=== PATIENT | male | born 1960 | race African-American/Black ===

== ENCOUNTER → 2019-05-20 | Outpatient (CLI) | payer OTHER ==
[~2019-05-20] MED LIST: ASPI81CH33 PO; BABY81CH; D3 H10002 PO; FELO10TA PO; FELO5TAB4; GASTROGRAFIN SOLUTION 30ML (Q9963) As Ordered ONE; ISOVUE-370 76% 100ML VIAL (Q9967) As Ordered ONE; LEVI20TA; LISI10TA4 PO; MULT1TAB7 PO; OXYC-517 PO; RYZOLT; ULTRTA
--- NOTE | 2019-05-21 09:58 | REP ---
Clinical: History of hepatocellular carcinoma. Technique: Axial noncontrast images from the thoracic inlet to the upper abdomen with coronal and sagittal re-formations. Comparison: None available. Findings: Lung apple demonstrate minimal posterior basilar dependent changes. No acute consolidation, significant nodule, or mass lesion appreciated. No effusion. No pneumothorax. Tracheobronchial tree is patent. No significant adenopathy. A few calcified mediastinal lymph nodes suggest prior granulomatous disease. Atherosclerotic changes to the thoracic aorta and coronary arteries noted without aortic aneurysm or cardiomegaly. No pericardial effusion. Small hiatal hernia at the gastroesophageal junction noted. Musculoskeletal structures are intact without focal osseous abnormality. Impression: No acute mediastinal or pleuroparenchymal process. No evidence for metastatic disease. Small hiatal hernia. Electronically Signed by Pedro Ortez MD 05/21/2019 09:50 A
--- NOTE | 2019-05-21 10:17 | REP ---
Clinical: History of hepatocellular carcinoma. Technique: Axial noncontrast images from the lung bases to the pubic symphysis with coronal and sagittal re-formations. Comparison: None available. Findings: The liver demonstrates nodular low density intraparenchymal lesions consistent with hepatocellular carcinoma. Nodular liver contour suggests underlying cirrhosis. Moderate to significant amount of ascites noted throughout the abdomen and pelvis and scattered mesenteric metastatic implants cannot definitively be excluded. The spleen, pancreas, bilateral adrenal glands and kidneys are relatively normal for noncontrast evaluation. Renal collecting system demonstrates contrast material. The gallbladder demonstrates high density material suggesting the possibility of sludge or vicarious excretion from prior intravenous contrast enhanced examination. There is no evidence for bowel obstruction. Pelvis demonstrates relatively normal bladder and age appropriate prostate/seminal vesicles. Abdominal aorta without aneurysm. Musculoskeletal structures demonstrate age-related changes without focal abnormality. Impression: 1. Nodular/infiltrating low density changes to the liver consistent with hepatocellular disease. Underlying cirrhosis noted. Moderate to significant ascites and mesenteric infiltration appreciated. Electronically Signed by Pedro Ortez MD 05/21/2019 10:09 A
== END ==
LOC: M RAD 14:57
PROVIDERS: ATTEND Internal Medicine Medical Oncology
DX: C22.0 Liver cell carcinoma (principal); K44.9 Diaphragmatic hernia without obstruction or gangrene; R18.8 Other ascites; K74.60 Unspecified cirrhosis of liver
CPT/HCPCS: 71250; 74176; Q9963; Q9967

== ENCOUNTER 2019-06-02 22:36 | Inpatient (IN) | payer OTHER ==
[~2019-06-02] VITALS: Ht 180.3 cm; Wt 74.5 kg
[~2019-06-02 22:36] MED LIST changes: -GASTROGRAFIN SOLUTION 30ML (Q9963) As Ordered ONE; -ISOVUE-370 76% 100ML VIAL (Q9967) As Ordered ONE
[2019-06-02] MEDS ORDERED: SENN1TAB36 PO (23:08)
[2019-06-02] MEDS ORDERED: SILD100T PO ×2 (23:08→23:49)
[2019-06-02] MEDS ORDERED: PANT40TA3 PO (23:08)
[2019-06-02] MEDS ORDERED: AMLO10TA5 PO ×2 (23:08→23:44)
[2019-06-02] MEDS ORDERED: LISI-538 PO ×2 (23:08→23:49)
[2019-06-02] MEDS ORDERED: PEG1POW PO (23:08)
[2019-06-02 23:15] LABS: BASO % 0.1 % (0.0-1.0); LYMPH # 2.3 10^3/uL (1.5-5.0); LYMPH % 15.9 % (24.0-44.0); MEAN CORPUSCULAR HEMOGLOBIN 31.2 pg (27.0-33.0); MEAN CORPUSCULAR HGB CONC 33.7 g/dl (32.0-36.5); MEAN CORPUSCULAR VOLUME 92.6 fl (80.0-96.0); MONO # 0.8 10^3/uL (0.0-0.8); MONO % 5.3 % (0.0-5.0); NEUTROPHILS # 11.3 10^3/uL (1.5-8.5); PLATELET COUNT, AUTOMATED 225 10^3/uL (150-450); RED BLOOD COUNT 2.02 10^6/uL (4.30-6.10); WHITE BLOOD COUNT 14.4 10^3/uL (4.0-10.0)
[2019-06-02] MEDS ORDERED: NS 500 ML IV ONE (23:15)
[2019-06-02] MEDS ORDERED: METOCLOPRAMIDE INJ 10MG/2ML VIAL (J2765) IV ONE (23:15)
[2019-06-02 23:18] LABS: HEMATOCRIT 18.7 % (42.0-52.0); HEMOGLOBIN 6.3 g/dl (13.5-17.5); INR 1.65; PROTHROMBIN TIME 19.2 SECONDS (11.8-14.0)
[2019-06-02 23:19] LABS: PARTIAL THROMBOPLASTIN TIME 31.5 SECONDS (25.0-38.4)
[2019-06-02 23:24] LABS: ALBUMIN 1.7 GM/DL (3.2-5.2); ALT/SGPT 80 U/L (12-78); BILIRUBIN,DIRECT 5.6 MG/DL (0.0-0.2); BILIRUBIN,TOTAL 6.3 MG/DL (0.2-1.0); BLOOD UREA NITROGEN 44 MG/DL (7-18); CALCIUM LEVEL 8.2 MG/DL (8.8-10.2); CARBON DIOXIDE LEVEL 25 MEQ/L (21-32); CHLORIDE LEVEL 103 MEQ/L (98-107); GLOMERULAR FILTRATION RATE > 60.0 (>49); GLUCOSE, FASTING 109 MG/DL (70-100); LIPASE 86 U/L (73-393); POTASSIUM SERUM 4.5 MEQ/L (3.5-5.1); SODIUM LEVEL 141 MEQ/L (136-145); TOTAL PROTEIN 5.9 GM/DL (6.4-8.2)
[2019-06-02] MEDS ORDERED: D-10TAB2 PO (23:49)
[2019-06-02] MEDS ORDERED: ASPI-161 PO (23:49)
[2019-06-02] MEDS ORDERED: MIRA1POW3 PO (23:49)
[2019-06-02] MEDS ORDERED: SENN1TAB41 PO (23:49)
[2019-06-03] VITALS (16 sets, daily range): BP systolic 89–137; BP diastolic 56–88
[2019-06-03] MEDS ORDERED: MULTCHW12 PO (00:10)
[2019-06-03] MEDS ORDERED: FUROSEMIDE 20 MG/2 ML VIAL (J1940) IV ONE (00:15)
[2019-06-03] MEDS ORDERED: cefTRIAXone SOD 1 GM in D5W MINI-BAG PLUS 50 ML IV ONE (00:15)
--- NOTE | 2019-06-03 00:34 | HPEPDOC ---
General Date of Admission Jun 02, 2019 at 22:37 Date of Service: Jun 03, 2019 Chief Complaint The patient is a 59-year-old male admitted with a reason for visit of Ascites;Cirrhosis;Vomiting. Source: Patient, Family Exam Limitations: No limitations Timing/Duration: Week(s) Severity: Moderate Associated Symptoms: Malaise, Nausea, Vomiting, Weakness History of Present Illness Patient is 59 years old male with past medical history of liver cirrhosis, hepatocellular carcinoma, hepatitis C treated previously with Harvoni presented to the hospital with abdominal distention and multiple episodes of vomiting associated with continuous nausea. Patient stated that he developed nausea and vomiting for past few days. Nausea was associated with increased abdominal distention. Of note patient was recently diagnosed with metastatic hepatocellular carcinoma and according to Dr. Coronel patient is not candidate for chemotherapy, she recommended hospice care. Abdomen, pelvis and chest CT on 07/20/2018 revealed nodular infiltrating low density changes to the liver consistent with HCC underlying cirrhosis, moderate to significant ascites and mesenteric infiltration with significant ascites throughout the abdomen and pelvis, scattered mesenteric metastatic implants with concern for scattered mesenteric implants in the chest. According to Dr. Coronel patient's lifetime less than 6 months. However patient states that he is a full code. In emergency room patient was found to have significant abdominal distention, icterus, lab work significant for anemia, transaminitis with hyperbilirubinemia. Patient denies fever, chills, shortness of breath, palpitations, diarrhea or dysuria Home Medications Scheduled Amlodipine Besylate (Amlodipine Besylate) 10 Mg Tablet, 5 MG PO DAILY, (Reported) Aspirin (Aspirin EC) 81 Mg Tablet.dr, 81 MG PO DAILY, (Reported) Cholecalciferol (Vitamin D3) (Vitamin D3) 1,000 Unit Tablet, 1,000 UNIT PO DAILY, (Reported) Folic Acid/Multivit-Min/Lutein (Multi-Vitamin Gummies) 1 Each Tab.chew, 1 CHW PO DAILY, (Reported) Lisinopril (Lisinopril) 20 Mg Tablet, 20 MG PO DAILY, (Reported) Pantoprazole Sodium (Pantoprazole Sodium) 40 Mg Tablet.dr, 40 MG PO DAILY, (Reported) Sennosides/Docusate Sodium (Senna-S Tablet) 1 Each Tablet, 2 TAB PO QHS, (Reported) Scheduled PRN Polyethylene Glycol 3350 (Miralax) 17 Gm Powd.pack, 17 GM PO QHS PRN for CONSTIPATION, (Reported) Sildenafil Citrate (Sildenafil Citrate) 100 Mg Tablet, 100 MG PO ASDIRECTED PRN for ERECTILE DYSFUNCTION, (Reported) Allergies Coded Allergies: No Known Allergies (Unverified , 05/17/19) Past Medical History Medical History Metastatic hepatocellular carcinoma, hepatitis C, hypertension Family History His brother had prostate cancer, sister had colon cancer Social History * Smoker: Denies Alcohol: Denies Drugs: denies A-FIB/CHADSVASC A-FIB History Current/History of A-Fib/PAF?: No Current PO Anticoag Therapy: No Review of Systems Constitutional: Reports: Fever, Weakness Eyes: Denies: Pain, Vision change ENT: Denies: Head Aches, Ear Pain Skin: Reports: Jaundice Pulmonary: Denies: Dyspnea Cardiovascular: Denies: Chest Pain, Palpitations Gastrointestinal: Reports: Nausea, Vomiting, Abdominal Pain Genitourinary: Denies: Dysuria, Frequency Hematologic: Denies: Bruising, Bleeding Excessively Endocrine: Denies: Polydipsia, Polyphagia Musculoskeletal: Denies: Neck Pain Neurological: Denies: Weakness, Numbness Psych: Reports: Mood Normal Physical Examination General Exam: Positive: Alert, Cooperative, No Acute Distress Eye Exam: Positive: PERRLA, Sclera icteric ENT Exam: Negative: Atraumatic, Mucous membr. moist/pink Neck Exam: Positive: Supple; Negative: JVD Chest Exam: Positive: Clear to auscultation Heart Exam: Positive: Rate Normal, Tachycardic Telemetry: Positive: Sinus Abdomen Exam: Positive: BS Hypoactive, Hepatospenomegaly, Other (distended, soft) Extremity Exam: Positive: Swelling (+2 pitting edema); Negative: Clubbing, Cyanosis Skin Exam: Positive: Nl turgor and temperature Neuro Exam: Positive: Normal Gait, Strength at 5/5 X4 ext, Cranial Nerves 3-12 NL Psych Exam: Positive: Mental status NL Vital Signs Vital Signs Date Time Temp Pulse Resp B/P (MAP) Pulse Ox O2 Delivery O2 Flow Rate FiO2 06/02/19 23:45 122 107/65 (79) 100 Room Air 06/02/19 22:38 97.2 20 Laboratory Data Labs 24H Laboratory Tests 2 06/02/19 22:46: Immature Granulocyte % (Auto) 0.7, Neutrophils (%) (Auto) 78.0H, Lymphocytes (%) (Auto) 15.9L, Monocytes (%) (Auto) 5.3H, Eosinophils (%) (Auto) 0.0, Basophils (%) (Auto) 0.1, Neutrophils # (Auto) 11.3H, Lymphocytes # (Auto) 2.3, Monocytes # (Auto) 0.8, Eosinophils # (Auto) 0.0, Basophils # (Auto) 0.0, Nucleated Red Blood Cells % (auto) 0.0, Prothrombin Time 19.2H, Prothromb Time International Ratio 1.65, Activated Partial Thromboplast Time 31.5, Anion Gap 13, Glomerular Filtration Rate > 60.0, Calcium Level 8.2L, Total Bilirubin 6.3H, Direct Bilirubin 5.6H, Aspartate Amino Transf (AST/SGOT) 176H, Alanine Aminotransferase (ALT/SGPT) 80H, Alkaline Phosphatase 302H, Total Protein 5.9L, Albumin 1.7L, Albumin/Globulin Ratio 0.40L, Lipase 86 06/02/19 23:17: CBC/BMP Laboratory Tests 06/02/19 22:46 Assessment/Plan Patient is 59 years old male with past medical history of liver cirrhosis, hepatocellular carcinoma, hepatitis C treated previously with Harvoni presented to the hospital with abdominal distention and multiple episodes of vomiting associated with continuous nausea. Patient stated that he developed nausea and vomiting for past few days Problems (1) Ascites Status: Acute Problem Text: Secondary to hepatocellular carcinoma and cirrhosis Patient is in high risk of developing spontaneous bacterial peritonitis I started ceftriaxone IV prophylactically Patient is a full code, he will need paracentesis in the morning with fluid analysis However, patient is a candidate for hospice, the goal of treatment should be discussed again Palliative care consult (2) Cirrhosis Status: Chronic Problem Text: See above (3) Vomiting Status: Acute Problem Text: Zofran IV when necessary (4) Anemia Status: Acute Problem Text: I will transfuse 2 units of blood Plan / VTE VTE Prophylaxis Ordered?: Yes ANNA FISHER DO Jun 03, 2019 00:34
[2019-06-03] MEDS: NS 1,000 ML IV SCH ×2 (00:52→23:55)
[2019-06-03] MEDS: ONDANSETRON 4MG/2ML VIAL (J2405) IV PRN (02:43)
[2019-06-03] MEDS: SPIRONOLACTONE 25 MG TAB PO SCH ×2 (09:00→12:39)
[2019-06-03] MEDS: SENOKOT S TAB PO SCH (09:00)
[2019-06-03] MEDS ORDERED: ASPIRIN 81 MG ENTERIC TAB PO SCH (09:00)
[2019-06-03] MEDS ORDERED: HEPARIN SOD (PORCINE) 5000 UNITS/ML VIAL SC SCH (09:00)
[2019-06-03] MEDS ORDERED: PANTOPRAZOLE 40MG TAB (PROTONIX) PO SCH (09:00)
[2019-06-03] MEDS: FUROSEMIDE 20 MG/2 ML VIAL (J1940) IV SCH ×2 (09:00→22:53)
[2019-06-03] MEDS: cefTRIAXone SOD 1 GM in D5W MINI-BAG PLUS 50 ML IV SCH ×2 (10:06→22:53)
[2019-06-03 12:26] LABS: HEMATOCRIT 22.2 % (42.0-52.0); HEMOGLOBIN 7.8 g/dl (13.5-17.5); MEAN CORPUSCULAR HGB CONC 35.1 g/dl (32.0-36.5); MEAN CORPUSCULAR VOLUME 88.1 fl (80.0-96.0); PLATELET COUNT, AUTOMATED 190 10^3/uL (150-450); RED BLOOD COUNT 2.52 10^6/uL (4.30-6.10)
[2019-06-03] MEDS: VITAMIN D 1,000 INTERNATIONAL UNITS TABLET PO SCH (12:48)
[2019-06-03 13:02] LABS: BLOOD UREA NITROGEN 58 MG/DL (7-18); CALCIUM LEVEL 8.4 MG/DL (8.8-10.2); CARBON DIOXIDE LEVEL 26 MEQ/L (21-32); CHLORIDE LEVEL 103 MEQ/L (98-107); CREATININE FOR GFR 1.19 MG/DL (0.70-1.30); GLOMERULAR FILTRATION RATE > 60.0 (>49); GLUCOSE, FASTING 107 MG/DL (70-100); POTASSIUM SERUM 4.2 MEQ/L (3.5-5.1); SODIUM LEVEL 140 MEQ/L (136-145)
--- NOTE | 2019-06-03 14:16 | IPNPDOC ---
Date Seen The patient was seen on 06/03/19. Progress Note SUBJECTIVE: Patient appeared relatively comfortable. Abdomen distended with discomfort but no significant pain. Remained tachy with HR 100s and BP low 90s systolic. Planned for paracentesis today. Discussed with patient and regarding palliative care. OBJECTIVE PHYSICAL EXAMINATION: VITAL SIGNS: Please see below. General: Mild distress, Alert Eyes: Normal sclera, EOMI, SB HENT: Atraumatic Cardiovascular: Tachycardic. Pulmonary: Clear to auscultation b/l, no wheezing GI: Soft, mild tenderness, distended abdomen Skin: Warm and dry Neuro: CN grossly intact. No focal deficits. Strengths equal b/l. Psych: oriented x 3 LABORATORY DATA, IMAGING STUDIES, MICROBIOLOGY: Please see below. DVT prophylaxis ordered?: SCD and MONTY ASSESSMENT AND PLAN: 1. Ascites in setting of hepatocellular carcinoma - To get paracentesis this morning/afternoon. - f/u fluid studies. - C/w Rocephin to cover for possible SBP. - Patient is afebrile but remains slightly tachycardic and hypotensive. 2. Hepatocellular carcinoma with liver cirrhosis - In setting of previously treated Hep C. - Reportedly metastatic cancer and was recommended for hospice by Oncology per H and P. - Discussed with patient and regarding likelihood of recurrence. - Agreeable for palliative care consultation. - Follows with Dr. Coronel as outpatient. Reportedly had stopped treatment. - Prognosis poor. 3. Anemia - suspect 2/2 malignancy? - s/p 2 units pRBC transfusion. - Holding HSQ given anemia. - Monitor and transfuse as needed. DISPOSITION: Home. VS, I&O, 24H, [facility] Vital Signs/I&O Vital Signs Date Time Temp Pulse Resp B/P (MAP) Pulse Ox O2 Delivery O2 Flow Rate FiO2 06/03/19 13:33 98.0 112 18 100 Room Air 06/03/19 07:52 92/60 I&O- Last 24 Hours up to 6 AM 06/03/19 06:00 Intake Total 1000 ml Balance 1000 ml Laboratory Data 24H LABS Laboratory Tests 2 06/02/19 22:46: Immature Granulocyte % (Auto) 0.7, Neutrophils (%) (Auto) 78.0H, Lymphocytes (%) (Auto) 15.9L, Monocytes (%) (Auto) 5.3H, Eosinophils (%) (Auto) 0.0, Basophils (%) (Auto) 0.1, Neutrophils # (Auto) 11.3H, Lymphocytes # (Auto) 2.3, Monocytes # (Auto) 0.8, Eosinophils # (Auto) 0.0, Basophils # (Auto) 0.0, Nucleated Red Blood Cells % (auto) 0.0, Prothrombin Time 19.2H, Prothromb Time International Ratio 1.65, Activated Partial Thromboplast Time 31.5, Anion Gap 13, Glomerular Filtration Rate > 60.0, Calcium Level 8.2L, Total Bilirubin 6.3H, Direct Bilirubin 5.6H, Aspartate Amino Transf (AST/SGOT) 176H, Alanine Aminotransferase (ALT/SGPT) 80H, Alkaline Phosphatase 302H, Total Protein 5.9L, Albumin 1.7L, Albumin/Globulin Ratio 0.40L, Lipase 86 06/02/19 23:17: 06/03/19 11:53: Nucleated Red Blood Cells % (auto) 0.1H, Anion Gap 11, Glomerular Filtration Rate > 60.0, Calcium Level 8.4L CBC/BMP Laboratory Tests 06/02/19 22:46 06/03/19 11:53 Microbiology Microbiology 06/02/19 Blood Culture, Received Pending STELLA ANSARI MD Jun 03, 2019 14:16
[2019-06-03 15:24] LABS: SPEC. GRAVITY BODY FLUIDS 1.011 (NOT ESTABLISHED)
[2019-06-03 15:43] LABS: SOURCE, BODY FLUID ASCITES
[2019-06-03 15:44] LABS: APPEARANCE, BODY FLUID HAZY (CLEAR); ASCITES FL COLOR YELLOW (COLORLESS)
[2019-06-03 16:01] LABS: SOURCE, BODY FLUID ALBUMIN ASCITES; SOURCE, BODY FLUID GLUCOSE ASCITES; SOURCE, BODY FLUID TOT PROTEIN ASCITES; TOTAL PROTEIN, BODY FLUID 0.8 G/DL (NOT ESTABLISHED)
[2019-06-03 17:41] LABS: HEMOGLOBIN 6.6 g/dl (13.5-17.5)
[2019-06-03] MEDS ORDERED: OCTREOTIDE ACETATE 100 MCG/ML VIAL (J2354) IV ONE (19:30)
[2019-06-03] MEDS ORDERED: OCTREOTIDE ACETATE 1,200 MCG in NS 238.8 ML IV SCH (19:30)
[2019-06-03] MEDS ORDERED: SUGAMMADEX SODIUM 500 MG/5 ML VIAL (BRIDION) As Ordered ONE (20:36)
[2019-06-03] MEDS ORDERED: ROCURONIUM BROMIDE 50 MG/5 ML VIAL As Ordered ONE (20:36)
[2019-06-03] MEDS ORDERED: fentaNYL 100 MCG/2 ML INJECTION (J3010) As Ordered ONE ×2 (20:36→21:36)
[2019-06-03] MEDS ORDERED: PHENYLephrine HCL 500 MCG/5 ML (100MCG/ML) SYRINGE (J2370) As Ordered ONE (20:36)
[2019-06-03] MEDS ORDERED: METOCLOPRAMIDE INJ 10MG/2ML VIAL (J2765) As Ordered ONE (20:36)
[2019-06-03] MEDS ORDERED: LIDOCAINE 2% INJ 100 MG/5 ML SDV (FOR ANES.) As Ordered ONE (20:36)
[2019-06-03] MEDS ORDERED: ONDANSETRON 4MG/2ML VIAL (J2405) As Ordered ONE (20:36)
[2019-06-03] MEDS ORDERED: PROPOFOL 200 MG/20 ML VIAL As Ordered ONE (20:36)
[2019-06-03] MEDS ORDERED: dexameTHASONE 4 MG/ML 1ML VIAL (J1100) As Ordered ONE (20:36)
--- NOTE | 2019-06-03 21:09 | ROOR ---
Patient Name: Diony Ferrera Procedure Date: 06/03/2019 7:54 PM Date of : 1960 Age: 59 Gender: Male Note Status: Finalized Procedure: Upper GI endoscopy Indications: Hematemesis, Cirrhosis rule out esophageal varices, Portal hypertension with suspected esophageal varices Providers: Kirt ROWLEY MD Referring MD: 2. Inpatient 2. Inpatient Requesting Provider: Medicines: General Anesthesia Complications: No immediate complications. Procedure: Pre-Anesthesia Assessment: - The heart rate, respiratory rate, oxygen saturations, blood pressure, adequacy of pulmonary ventilation, and response to care were monitored throughout the procedure. The Endoscope was introduced through the mouth, and advanced to the second part of duodenum. The upper GI endoscopy was accomplished without difficulty. The patient tolerated the procedure well. Findings: Spurting grade III varices were found in the lower third of the esophagus,. Three bands were successfully placed with incomplete eradication of varices. Bleeding had stopped at the end of the procedure. Red blood was found in the entire examined stomach. Fluid aspiration was performed. The exam of the stomach was otherwise normal. The examined duodenum was normal. Impression: - Grade III esophageal varices-actively bleeding . Banded with good hemostasis. - Red blood in the entire stomach. Fluid aspiration performed for better visualisation. I do not see any definite gastric varices. - Normal examined duodenum. Recommendation: - Administer an IV bolus of 50 micrograms of octreotide followed by an infusion of 50 micrograms per hour for 3 days. - If necessary, rebolus with additional 50 mcg and increase octreotide drip to 100 mcg/hr for rebleeding. - Transfuse aggressively for potential rebleeding. - Clear liquid diet. - Observe patient's clinical course. Kirt Rowley MD Kirt ROWLEY MD 06/03/2019 9:08:51 PM Electronically signed by Kirt ROWLEY MD Number of Addenda: 0 Note Initiated On: 06/03/2019 7:54 PM Estimated Blood Loss: Estimated blood loss: none.
[2019-06-03] MEDS: fentaNYL 100 MCG/2 ML INJECTION (J3010) IV PRN ×4 (21:37→22:00)
[2019-06-03] MEDS ORDERED: LR 1,000 ML IV SCH (22:00)
[2019-06-03] MEDS ORDERED: ONDANSETRON 4MG/2ML VIAL (J2405) IV PRN (22:00)
[2019-06-03 22:32] LABS: HEMATOCRIT 32.3 % (42.0-52.0); HEMOGLOBIN 10.6 g/dl (13.5-17.5); MEAN CORPUSCULAR HEMOGLOBIN 29.9 pg (27.0-33.0); MEAN CORPUSCULAR HGB CONC 32.8 g/dl (32.0-36.5); MEAN CORPUSCULAR VOLUME 91.2 fl (80.0-96.0); PLATELET COUNT, AUTOMATED 140 10^3/uL (150-450); RED BLOOD COUNT 3.54 10^6/uL (4.30-6.10)
[2019-06-03] MEDS: PANTOPRAZOLE 40MG INJ (PROTONIX) (C9113) IV SCH (22:52)
[2019-06-03] MEDS: OCTREOTIDE ACETATE IV SCH (22:52)
[2019-06-03] MEDS: NS IV SCH (22:52)
[2019-06-04] VITALS (16 sets, daily range): BP systolic 121–151; BP diastolic 62–90
--- NOTE | 2019-06-04 01:10 | ECGEPIP ---
[facility] Test Date: 2019-06-03 Pat Name: ALBERTO PETERSON Department: Room: [place] [address] Gender: Male Reed Polisher: : [id number] Requested By: JUANA GALLO Order Number: [id number] Reading MD: Bruno Morales Measurements Intervals [place] Rate: 99 P: 34 [place]: 128 QRS: 10 QRSD: 88 T: 8 QT: 363 QTc: 467 Interpretive Statements SINUS RHYTHM NONSPECIFIC ST-T ABNORMALITIES NO PRIOR TRACING Electronically Signed on 06-04-2019 1:10:33 EST by Bruno Morales
[2019-06-04] MEDS: MORPHINE 2 MG/ML 1ML VIAL (J2270) IV PRN ×3 (02:05→22:46)
[2019-06-04] MEDS: ONDANSETRON 4MG/2ML VIAL (J2405) IV PRN ×2 (02:34→22:46)
[2019-06-04 05:02] LABS: HEMATOCRIT 30.8 % (42.0-52.0); HEMOGLOBIN 10.9 g/dl (13.5-17.5); MEAN CORPUSCULAR HEMOGLOBIN 30.3 pg (27.0-33.0); MEAN CORPUSCULAR HGB CONC 35.4 g/dl (32.0-36.5); MEAN CORPUSCULAR VOLUME 85.6 fl (80.0-96.0); PLATELET COUNT, AUTOMATED 130 10^3/uL (150-450); WHITE BLOOD COUNT 15.4 10^3/uL (4.0-10.0)
[2019-06-04 05:32] LABS: ALBUMIN 2.2 GM/DL (3.2-5.2); ALT/SGPT 86 U/L (12-78); BILIRUBIN,TOTAL 6.8 MG/DL (0.2-1.0); BLOOD UREA NITROGEN 64 MG/DL (7-18); CALCIUM LEVEL 8.2 MG/DL (8.8-10.2); CARBON DIOXIDE LEVEL 28 MEQ/L (21-32); CHLORIDE LEVEL 105 MEQ/L (98-107); CREATININE FOR GFR 1.25 MG/DL (0.70-1.30); GLOMERULAR FILTRATION RATE > 60.0 (>49); GLUCOSE, FASTING 145 MG/DL (70-100); POTASSIUM SERUM 4.1 MEQ/L (3.5-5.1); SODIUM LEVEL 143 MEQ/L (136-145); TOTAL PROTEIN 5.9 GM/DL (6.4-8.2)
[2019-06-04] MEDS: PANTOPRAZOLE 40MG INJ (PROTONIX) (C9113) IV SCH ×2 (08:56→20:05)
[2019-06-04] MEDS: SPIRONOLACTONE 25 MG TAB PO SCH ×2 (08:57→16:26)
[2019-06-04] MEDS: VITAMIN D 1,000 INTERNATIONAL UNITS TABLET PO SCH (08:57)
[2019-06-04] MEDS: SENOKOT S TAB PO SCH (08:57)
[2019-06-04] MEDS: cefTRIAXone SOD 1 GM in D5W MINI-BAG PLUS 50 ML IV SCH ×2 (08:57→20:05)
[2019-06-04] MEDS: FUROSEMIDE 20 MG/2 ML VIAL (J1940) IV SCH ×2 (08:58→20:05)
--- NOTE | 2019-06-04 09:06 | IPN ---
DATE: 06/04/2019 Diony is seen in the ICU. His primary care provider is [facility]. He has metastatic carcinoma who was admitted with ascites and developed a variceal bleeding during paracentesis. He had upper endoscopy last evening by Dr. Harrison who actually saw spurting blood coming from his grade 3 varices. The patient underwent banding procedure and now on octreotide 50 mcg per hour for 3 days (we bolloused an additional 50 mcg and increased to 100 mcg per hour if patient re-bleeds). I did agree to clear liquid diet . Patient's hemoglobin has stabilized overnight. It is down to 10.9 this morning. PHYSICAL EXAMINATION: 120/84, respiratory rate 20, 95% saturation. Appearance: Alert, conversant and in no distress. Mental status exam normal. HEENT: Unremarkable. LUNGS: Clear. Heart regular. Abdomen is soft and distended with ascites and trace peripheral edema. LABS: White count 1540, hemoglobin 10.9, platelets 130, sodium 143, potassium 4.1, BUN 64, creatinine 1.2. Glucose 145, bilirubin 6.8, INR was 1.6 on admission. Paracentesis fluid showed only 182 white cells. Cultures are negative to date. IMPRESSION: 1. Severe esophageal bleed with acute blood loss anemia we are requiring urgent endoscopy with banding. The patient is status-post 60 units of packed red blood cell transfusion and fresh frozen plasma. He has no signs of re-bleeding. His hemoglobin was stable per the EGD he can have clear liquids which will start today. The patient wants to go home and I explained how his condition required several days of hospitalization, also patient and his would like Hospice involvement which will be discussed below. 2. 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 3. History of hypertension. His antihypertensives are on hold in face of his severe upper GI bleeding. 4. Ascites status post paracentesis. No sign of spontaneous bacterial peritonitis. We will continue antibiotic coverage for 7 days postoperative for endoscopy to prevent development of this spontaneous bacterial peritonitis. 5. Anemia secondary to acute GI blood loss. Serial CBC's have been ordered. DISPOSITION: I had a shelbie discussion with Diony and his . He would like to be discharged on Hospice care. I have put in a Hospice consult. Dr. Coronel has already seen him from a hematology oncology and agrees with less than 6 months prognosis. We made out a MOLST form today which is DO NOT RESUSCITATE DO NOT INTUBATE, no tube feedings, would ask for IV fluids while still in the hospital antibiotics which we are providing.
[2019-06-04 14:48] LABS: HEMATOCRIT 34.6 % (42.0-52.0); HEMOGLOBIN 12.2 g/dl (13.5-17.5); MEAN CORPUSCULAR HEMOGLOBIN 30.4 pg (27.0-33.0); MEAN CORPUSCULAR HGB CONC 35.3 g/dl (32.0-36.5); MEAN CORPUSCULAR VOLUME 86.3 fl (80.0-96.0); PLATELET COUNT, AUTOMATED 122 10^3/uL (150-450); RED BLOOD COUNT 4.01 10^6/uL (4.30-6.10); WHITE BLOOD COUNT 17.4 10^3/uL (4.0-10.0)
[2019-06-04] MEDS: oxyCODONE 5MG TAB PO PRN ×2 (16:26→22:39)
--- NOTE | 2019-06-04 17:06 | REP ---
Ultrasound-guided paracentesis The procedure was performed by GAIL Allen, under the direct supervision of Dr. Emanuel. The risks and benefits of the procedure were explained to the patient and informed consent was obtained both verbally and written. Directly prior to the start of the procedure, a formal timeout was completed in the procedure room. Under ultrasound guidance, the largest pocket of fluid in the right flank was localized and skin was marked. The skin was then prepped and draped in a sterile fashion. 10 ml of 1% lidocaine was used as a local anesthetic. Using ultrasound guidance, an 8-Albanian multi side-hole catheter was inserted using trocar technique. 3,500 mL of there are to yellow colored fluid was withdrawn, 200 ml were sent to the laboratory for further analysis and remaining was discarded. Right when the patient reached 3500 ml of fluid removal there was a drop in blood pressure, at which time it was decided to stop. The patient tolerated the procedure well and there were no immediate complications. After the appropriate monitored convalescence the patient was discharged from the department. Reviewed by GAIL Rubin 06/03/2019 05:26 P Electronically Signed by Elliott Emanuel MD 06/04/2019 04:57 P
[2019-06-04] MEDS: NS IV SCH (20:05)
[2019-06-04] MEDS: OCTREOTIDE ACETATE IV SCH (20:05)
[2019-06-04 20:18] LABS: HEMATOCRIT 32.4 % (42.0-52.0); HEMOGLOBIN 11.3 g/dl (13.5-17.5); MEAN CORPUSCULAR HEMOGLOBIN 30.4 pg (27.0-33.0); MEAN CORPUSCULAR HGB CONC 34.9 g/dl (32.0-36.5); MEAN CORPUSCULAR VOLUME 87.1 fl (80.0-96.0); PLATELET COUNT, AUTOMATED 143 10^3/uL (150-450); RED BLOOD COUNT 3.72 10^6/uL (4.30-6.10)
[2019-06-05] VITALS: BP 123/76
[2019-06-05 02:27] LABS: HEMATOCRIT 34.2 % (42.0-52.0); HEMOGLOBIN 11.6 g/dl (13.5-17.5); MEAN CORPUSCULAR HEMOGLOBIN 30.4 pg (27.0-33.0); MEAN CORPUSCULAR HGB CONC 33.9 g/dl (32.0-36.5); MEAN CORPUSCULAR VOLUME 89.8 fl (80.0-96.0); PLATELET COUNT, AUTOMATED 148 10^3/uL (150-450); RED BLOOD COUNT 3.81 10^6/uL (4.30-6.10); WHITE BLOOD COUNT 19.2 10^3/uL (4.0-10.0)
[2019-06-05 04:00] VITALS: BP 116/76
[2019-06-05] MEDS: ONDANSETRON 4MG/2ML VIAL (J2405) IV PRN ×3 (05:12→20:03)
[2019-06-05 08:00] VITALS: BP 132/77
[2019-06-05 08:22] LABS: HEMATOCRIT 37.8 % (42.0-52.0); HEMOGLOBIN 12.1 g/dl (13.5-17.5); MEAN CORPUSCULAR HEMOGLOBIN 30.9 pg (27.0-33.0); MEAN CORPUSCULAR VOLUME 96.7 fl (80.0-96.0); PLATELET COUNT, AUTOMATED 150 10^3/uL (150-450); RED BLOOD COUNT 3.91 10^6/uL (4.30-6.10); WHITE BLOOD COUNT 16.2 10^3/uL (4.0-10.0)
[2019-06-05] MEDS: VITAMIN D 1,000 INTERNATIONAL UNITS TABLET PO SCH (08:46)
[2019-06-05] MEDS: SENOKOT S TAB PO SCH (08:46)
[2019-06-05] MEDS: SPIRONOLACTONE 25 MG TAB PO SCH ×2 (08:46→16:51)
[2019-06-05] MEDS: FUROSEMIDE 20 MG/2 ML VIAL (J1940) IV SCH ×2 (08:46→16:52)
[2019-06-05] MEDS: oxyCODONE 5MG TAB PO PRN ×3 (08:47→20:05)
[2019-06-05] MEDS: PANTOPRAZOLE 40MG INJ (PROTONIX) (C9113) IV SCH ×2 (08:47→20:02)
[2019-06-05 09:07] LABS: ALBUMIN 2.5 GM/DL (3.2-5.2); ALT/SGPT 130 U/L (12-78); BILIRUBIN,TOTAL 8.1 MG/DL (0.2-1.0); BLOOD UREA NITROGEN 55 MG/DL (7-18); CARBON DIOXIDE LEVEL 24 MEQ/L (21-32); CHLORIDE LEVEL 106 MEQ/L (98-107); CREATININE FOR GFR 1.22 MG/DL (0.70-1.30); GLOMERULAR FILTRATION RATE > 60.0 (>49); GLUCOSE, FASTING 130 MG/DL (70-100); POTASSIUM SERUM 4.2 MEQ/L (3.5-5.1); SODIUM LEVEL 142 MEQ/L (136-145); TOTAL PROTEIN 6.4 GM/DL (6.4-8.2)
[2019-06-05] MEDS: cefTRIAXone SOD 1 GM in D5W MINI-BAG PLUS 50 ML IV SCH ×2 (09:32→20:05)
--- NOTE | 2019-06-05 11:09 | IPN ---
DATE: 06/05/2019 Diony was seen in progressive care unit (PCU). I had a long talk with the patient and his again today. He has terminal liver cancer with cirrhosis, intractable ascites and a severe upper GI bleed from varices. Hospice has been consulted but has not seen the family yet. He is currently on octreotide for 5 days for his spurting esophageal varices. His ascites has re-accumulated, which is causing nausea and abdominal discomfort. PHYSICAL EXAMINATION: Blood pressure 132/77, pulse 85, respiratory rate 18, 99% oxygen saturation. Appearance is chronically ill-appearing. Lying fat in bed. Jaundices. Sclerae are icteric. Lungs clear. Heart regular rhythm. Abdomen distended with ascites. Mildly tender. No peripheral edema. LABS: White count 16.2, hemoglobin 12.1, platelets 150. Electrolytes are all pending. Ascites cultures negative. IMPRESSION: 1. Severe esophageal bleed with acute blood loss anemia required urgent endoscopy with banding. Patient is on 5 days of octreotide. Daily CBCs have been ordered. 2. Hepatocellular carcinoma, metastatic, grim prognosis. Less than 6-month life expectancy per hematology/oncology. Hospice has been consulted. Will try to connect his family with hospice on Friday. 3. Intractable ascites: He is uncomfortable from the ascites. I do not think he should have another paracentesis as this could provoke esophageal bleeding. Pain control has been ordered. I am augmenting his analgesics. If it were not for the need for octreotide, we would go to comfort measures at this point. I will transfer him up to the floor. Plan is discharge to hospice, either hospice care either home or hospice residence once we can arrange this on Friday.
[2019-06-05] MEDS: MORPHINE 2 MG/ML 1ML VIAL (J2270) IV PRN (11:16)
[2019-06-05 12:00] VITALS: BP 132/88
[2019-06-05 16:00] VITALS: BP 140/85
[2019-06-05 20:00] VITALS: BP 126/84
[2019-06-05] MEDS: OCTREOTIDE ACETATE IV SCH (21:12)
[2019-06-05] MEDS: NS IV SCH (21:12)
[2019-06-06] VITALS: BP 119/82
[2019-06-06] MEDS: MORPHINE 2 MG/ML 1ML VIAL (J2270) IV PRN ×2 (00:36→23:09)
[2019-06-06] MEDS: oxyCODONE 5MG TAB PO PRN ×3 (02:01→17:27)
[2019-06-06] MEDS: ONDANSETRON 4MG/2ML VIAL (J2405) IV PRN ×3 (02:01→23:08)
[2019-06-06 04:00] VITALS: BP 128/86
[2019-06-06 06:10] LABS: ALBUMIN 2.3 GM/DL (3.2-5.2); ALT/SGPT 145 U/L (12-78); BILIRUBIN,TOTAL 9.7 MG/DL (0.2-1.0); BLOOD UREA NITROGEN 52 MG/DL (7-18); CALCIUM LEVEL 8.8 MG/DL (8.8-10.2); CARBON DIOXIDE LEVEL 28 MEQ/L (21-32); CHLORIDE LEVEL 105 MEQ/L (98-107); CREATININE FOR GFR 1.39 MG/DL (0.70-1.30); GLOMERULAR FILTRATION RATE > 60.0 (>49); GLUCOSE, FASTING 124 MG/DL (70-100); SODIUM LEVEL 141 MEQ/L (136-145); TOTAL PROTEIN 6.6 GM/DL (6.4-8.2)
[2019-06-06 08:00] VITALS: BP 130/82
[2019-06-06] MEDS: VITAMIN D 1,000 INTERNATIONAL UNITS TABLET PO SCH (09:00)
[2019-06-06] MEDS: SPIRONOLACTONE 25 MG TAB PO SCH ×2 (09:29→17:22)
[2019-06-06] MEDS: cefTRIAXone SOD 1 GM in D5W MINI-BAG PLUS 50 ML IV SCH (09:29)
[2019-06-06] MEDS: PANTOPRAZOLE 40MG INJ (PROTONIX) (C9113) IV SCH ×2 (09:30→20:44)
[2019-06-06] MEDS: SENOKOT S TAB PO SCH (09:30)
[2019-06-06] MEDS: FUROSEMIDE 20 MG/2 ML VIAL (J1940) IV SCH ×2 (09:30→17:22)
--- NOTE | 2019-06-06 11:34 | IPN ---
DATE: 06/06/2019 Diony feels better. He is less nauseated, less abdominal pain. We augmented his pain medications and nausea medications yesterday. He is on his fourth day of octreotide for esophageal bleeding. We are anticipating hospice seeing him and his tomorrow to plan end of life care. PHYSICAL EXAMINATION: Afebrile. Vital signs stable. He is alert, conversant. He is jaundiced. LUNGS: Clear. HEART: Regular rhythm. ABDOMEN: Distended with ascites. EXTREMITIES: 1+ peripheral edema. LABORATORIES: Creatinine is up to 1.39. Bilirubin is up to 9.7. IMPRESSION: 1. Severe esophageal bleeding from esophageal varices, acute blood loss anemia. He is on his fourth out of five days of octreotide. I have ordered a CBC for the morning. He is on prophylactic ceftriaxone to decrease risk of spontaneous bacterial peritonitis. 2. Appendiceal carcinoma, metastatic. Hospice has been consulted and expect that they will see him tomorrow. 3. Intractable ascites. We really cannot approach another paracentesis as the decompression with this could provoke more bleeding from the esophageal varices. Hopefully tomorrow we will get a disposition as far as end of life care, either home with hospice or the hospice residence.
[2019-06-06 12:00] VITALS: BP 124/77
[2019-06-06 16:00] VITALS: BP 148/85
[2019-06-06] MEDS: CIPROFLOXACIN 500 MG TAB PO SCH (17:23)
[2019-06-06 20:00] VITALS: BP 127/84
[2019-06-06] MEDS: OCTREOTIDE ACETATE IV SCH (22:18)
[2019-06-06] MEDS: NS IV SCH (22:18)
[2019-06-07] VITALS: BP 115/85
[2019-06-07 04:00] VITALS: BP 131/80
[2019-06-07] MEDS: oxyCODONE 5MG TAB PO PRN ×3 (04:08→19:19)
[2019-06-07] MEDS: CIPROFLOXACIN 500 MG TAB PO SCH (05:51)
[2019-06-07 08:00] VITALS: BP 133/79
[2019-06-07 08:05] LABS: ALBUMIN 2.2 GM/DL (3.2-5.2); ALT/SGPT 154 U/L (12-78); BILIRUBIN,TOTAL 10.5 MG/DL (0.2-1.0); BLOOD UREA NITROGEN 45 MG/DL (7-18); CALCIUM LEVEL 8.3 MG/DL (8.8-10.2); CARBON DIOXIDE LEVEL 28 MEQ/L (21-32); CHLORIDE LEVEL 99 MEQ/L (98-107); CREATININE FOR GFR 1.46 MG/DL (0.70-1.30); GLOMERULAR FILTRATION RATE > 60.0 (>49); GLUCOSE, FASTING 116 MG/DL (70-100); POTASSIUM SERUM 3.5 MEQ/L (3.5-5.1); SODIUM LEVEL 136 MEQ/L (136-145); TOTAL PROTEIN 6.4 GM/DL (6.4-8.2)
[2019-06-07 08:52] LABS: BASO % 0.1 % (0.0-1.0); EOS # 0.1 10^3/uL (0.0-0.5); EOS % 0.4 % (0.0-3.0); HEMATOCRIT 33.3 % (42.0-52.0); HEMOGLOBIN 11.3 g/dl (13.5-17.5); LYMPH % 6.8 % (24.0-44.0); MEAN CORPUSCULAR HEMOGLOBIN 31.2 pg (27.0-33.0); MEAN CORPUSCULAR HGB CONC 33.9 g/dl (32.0-36.5); MONO # 1.2 10^3/uL (0.0-0.8); MONO % 8.2 % (0.0-5.0); NEUTROPHILS # 11.9 10^3/uL (1.5-8.5); NEUTROPHILS % 83.9 % (36.0-66.0); PLATELET COUNT, AUTOMATED 186 10^3/uL (150-450); RED BLOOD COUNT 3.62 10^6/uL (4.30-6.10); WHITE BLOOD COUNT 14.2 10^3/uL (4.0-10.0)
[2019-06-07] MEDS: VITAMIN D 1,000 INTERNATIONAL UNITS TABLET PO SCH (09:00)
[2019-06-07] MEDS: FUROSEMIDE 20 MG/2 ML VIAL (J1940) IV SCH (09:53)
[2019-06-07] MEDS: PANTOPRAZOLE 40MG INJ (PROTONIX) (C9113) IV SCH (09:53)
[2019-06-07] MEDS: SENOKOT S TAB PO SCH (09:54)
[2019-06-07] MEDS: SPIRONOLACTONE 25 MG TAB PO SCH (09:54)
[2019-06-07] MEDS ORDERED: LORazepam 1 MG TAB PO PRN (10:45)
[2019-06-07] MEDS ORDERED: SCOPOLAMINE 1MG TRANSDERMAL PATCH TOP PRN (10:45)
[2019-06-07] MEDS ORDERED: MORPHINE 2 MG/ML 1ML VIAL (J2270) IV PRN (10:45)
--- NOTE | 2019-06-07 10:57 | IPN ---
DATE: 06/07/2019 Diony is developing a hepatorenal syndrome. His renal function is declining on a daily basis and his bilirubin is now up to 10. His ascites is increasing and expected life expectancy is less than a week. Today is the last day for his octreotide. At this point, he has had no rebleeding. He is aware of his limited life expectancy and seems at peace with this. PHYSICAL EXAM: 131/80, pulse 96, respirations 17, 99% oxygen saturation. He is jaundiced. He is alert and conversing with his . Upper body is cachectic. Abdomen with ascites. There is trace peripheral edema. LABS: Potassium 3.5. Creatinine has gone up to 1.46. Bilirubin is up to 10. White count 14.2, hemoglobin 11, and platelets 186. IMPRESSION: 1. Hepatocellular carcinoma metastatic. Not a candidate for chemotherapy for hematology/oncology. 2. Hepatorenal syndrome that is progressive over the last few days. 3. Severe upper gastrointestinal (GI) bleed from variceal bleeding with acute blood loss anemia requiring 6 units of packed red blood cells and 5 days of octreotide. 4. Ascites status post paracentesis with decompression leading to bleeding from his varices. PLAN: Today, we will discontinue the octreotide and transition to comfort measures. The patient and his are aware that I think he probably has about a week life expectancy with progressing hepatorenal failure. He is at peace with this and the is asking for the hospice residence as she does not think he would want to be home to . Patient and family services (PFS) is involved with this and we discussed this more this morning on case rounds. COMFORT MEASURES ONLY orders have been placed and hospice consulted.
[2019-06-07 12:00] VITALS: BP 115/53
[2019-06-07] MEDS: MORPHINE 10MG/0.5ML ORAL CONCENTRATE SOLUTION U/D SL PRN ×2 (16:15→23:39)
[2019-06-08] MEDS: ONDANSETRON 4MG/2ML VIAL (J2405) IV PRN (07:46)
[2019-06-08] MEDS: oxyCODONE 5MG TAB PO PRN (07:46)
[2019-06-08] MEDS: SENOKOT S TAB PO SCH (09:59)
[2019-06-08] MEDS ORDERED: ATIV1TAB7 PO (12:22)
[2019-06-08] MEDS ORDERED: Morphine Sulfate Oral Conc. SL (12:22)
[2019-06-08] MEDS ORDERED: ATRO1OPD PO (12:22)
[2019-06-08] MEDS ORDERED: OXYCO5TA PO (12:22)
--- NOTE | 2019-06-08 12:51 | DS.PDOC ---
Discharge Summary General Date of Admission Jun 03, 2019 at 15:03 Date of Discharge 06/08/2019 Attending Physician: CONNIE CHOE MD Specialist/Consultants Involve: JOHN ROWLEY MD Discharge Summary PROCEDURES PERFORMED DURING STAY: Upper endoscopy on 06/03/2019 ADMITTING DIAGNOSES: 1. End stage liver cirrhosis DISCHARGE DIAGNOSES: 1. End stage liver cirrhosis 2. Upper GI variceal bleeding 3. Metastatic hepatocellular carcinoma 4. Hepatorenal syndrome 5. Acute on chronic liver failure COMPLICATIONS/CHIEF COMPLAINT: Ascites;Cirrhosis;Vomiting. HISTORY OF PRESENT ILLNESS: 59 years old man with advanced liver cirrhosis, hepatocellular carcinoma, hepatitis C s/p Ivon who presented to the hospital with abdominal distention and multiple episodes of nausea and vomiting with increased abdominal distention in the setting of a recent CT A/P on 05/20/2019 that revealed nodular infiltrating low density changes to the liver consistent with HCC underlying cirrhosis, moderate to significant ascites and mesenteric infiltration with significant ascites throughout the abdomen and pelvis, scattered mesenteric metastatic implants with concern for scattered mesenteric implants in the chest. HOSPITAL COURSE: During his hospital course he was found to be in acute on chronic liver with cirrhosis decompensated by tense ascites for which he had a paracentesis with a subsequent course that was c/b bleeding esophageal varices for which he had an EGD on 06/03 with active significant active bleeding while on octreotide, protonix and empiric antibiotics. Meanwhile he has worsening synthetic liver function, hyperbilirubinemia, and ARSEN secondary to hepatorenal syndrome and that time given the poor prognosis Mr. Ferrera and his family decided that he would like to de-escalate his goals of care to comfort measures only and requested to be discharged to [facility]-residence hospice where he is now angela ng discharged. DISCHARGE MEDICATIONS: Please see below. ALLERGIES: Please see below. PHYSICAL EXAMINATION ON DISCHARGE: VITAL SIGNS: Please see below. General: NAD, Alert, uncomfortable appearing, chronically ill appearing. Eyes: Icteric sclera HENT: Atraumatic, bitemporal wasting Cardiovascular: RRR this morning Pulmonary: Clear to auscultation bilaterally, no wheezing GI: moderate to severely distended abdomen, however soft, no TTP, positive fluid wave Skin: Warm and dry Neuro: Cranial nerves intact, no noted gross focal deficits. Psych: AOx3 LABORATORY DATA: Please see below. IMAGING: No new imaging this admission PROGNOSIS: Poor ACTIVITY: As tolerated DIET: As tolerated DISCHARGE PLAN: To inpatient hospice DISPOSITION: To inpatient hospice DISCHARGE INSTRUCTIONS: 1. Patient is being discharged to in-residence hospice for comfort measures only management and end of life care ITEMS TO FOLLOWUP ON OUTPATIENT: 1. Pain and symptom management DISCHARGE CONDITION: Stable, tenuous TIME SPENT ON DISCHARGE: Greater than 32 minutes. Vital Signs/I&Os Vital Signs Date Time Temp Pulse Resp B/P (MAP) Pulse Ox O2 Delivery O2 Flow Rate FiO2 06/08/19 00:10 17 Room Air 06/07/19 12:00 97.0 73 115/53 (73) 96 06/03/19 21:50 2 I&O- Last 24 Hours up to 6 AM 06/08/19 06:00 Intake Total 1110 ml Output Total 100 ml Balance 1010 ml Microbiology Microbiology 06/03/19 Acid Fast Stain, Received Pending 06/03/19 Mycobacterial Culture, Received Pending 06/03/19 Fungal Smear, Received Pending 06/03/19 Fungal Culture, Received Pending 06/03/19 Gram Stain - Final, Complete 06/03/19 Body Fluid Culture - Final, Complete 06/02/19 Blood Culture - Final, Complete NO GROWTH AFTER 5 DAYS Discharge Medications Scheduled Pantoprazole Sodium (Pantoprazole Sodium) 40 Mg Tablet.dr, 40 MG PO DAILY, (Reported) Sennosides/Docusate Sodium (Senna-S Tablet) 1 Each Tablet, 2 TAB PO QHS, (Reported) Scheduled PRN Atropine Sulfate (Atropine Sulfate) 1% 2ML Drops, 1-2 DROP PO Q2H PRN for TERMINAL SECRETIONS Use sublingually if unable to swallow MDD = 36 drops Lorazepam (Ativan) 1 Mg Tablet, 1 MG PO Q2HP PRN for ANXIETY Oxycodone HCl (Oxycodone HCl) 5 Mg Tablet, 5 MG PO Q6HP PRN for PAIN Polyethylene Glycol 3350 (Miralax) 17 Gm Powd.pack, 17 GM PO QHS PRN for CONSTIPATION, (Reported) [Morphine Sulfate Oral Conc.] 10 MG/0.5 ML CONC, 2 MG SL Q2HP PRN for SEVERE PAIN (PS 8-10) Allergies Coded Allergies: No Known Allergies (Unverified , 05/17/19) CONNIE CHOE MD Jun 08, 2019 12:42
== END 2019-06-08 13:00 | disposition hospice, home (50) | DRG 432 ==
LOC: M ED 22:36 → M ED INP 22:37 → M MSPAV 06-03 01:51 → OBSVTOIN 06-03 15:03 → M ICU 06-03 20:10 → M PCU 06-04 21:06 → M MSPAV 06-07 22:32
PROVIDERS: ADMIT Internal Medicine; ATTEND Internal Medicine
PROC: 30233K1 Transfusion of Nonautologous Frozen Plasma into Peripheral Vein, Percutaneous Approach (ICD-10-PCS; 2019-06-03)
PROC: 0W9F40Z Drainage of Abdominal Wall with Drainage Device, Percutaneous Endoscopic Approach (ICD-10-PCS; 2019-06-03)
PROC: 06L38CZ Occlusion of Esophageal Vein with Extraluminal Device, Via Natural or Artificial Opening Endoscopic (ICD-10-PCS; 2019-06-03)
PROC: 30233N1 Transfusion of Nonautologous Red Blood Cells into Peripheral Vein, Percutaneous Approach (ICD-10-PCS; principal; 2019-06-03 13:30)
DX: K74.69 Other cirrhosis of liver (principal); K72.00 Acute and subacute hepatic failure without coma; I85.11 Secondary esophageal varices with bleeding; R18.8 Other ascites; C78.6 Secondary malignant neoplasm of retroperitoneum and peritoneum; D62 Acute posthemorrhagic anemia; C22.8 Malignant neoplasm of liver, primary, unspecified as to type; C78.5 Secondary malignant neoplasm of large intestine and rectum; Z79.82 Long term (current) use of aspirin; Z79.899 Other long term (current) drug therapy; Z66 Do not resuscitate; Z51.5 Encounter for palliative care